=== PATIENT | female | born 1970 | race Caucasian/White ===

== ENCOUNTER → 2016-12-14 10:31 | Emergency (ER) | payer SELFPAY ==
[~2016-12-14 10:31] MED LIST: PPD test dose* 5 TU/0.1 ML TEST (*USE PPD ORDER SET*) ONE
== END | disposition home or self-care (01) ==
LOC: UCEAST 10:31 → OHEAST 10:31
DX: Z11.1 Encounter for screening for respiratory tuberculosis (principal)

== ENCOUNTER 2017-03-25 09:31 | Emergency (ER) | payer OTHER ==
--- NOTE | 2017-03-25 11:41 | UC ---
Cecelia Rodriguez Julia, scribed for Ren Meza MD on 03/25/17 at 1112 . FLU HPI - HPI Summary HPI Summary: This patient is a 46 year old F presenting to [facility] accompanied by family with a chief complaint of influenza symptoms since 03/20/17. Patient reports ear pain , intermittent sore throat, sinus congestion, frontal headache, previous body aches, clear nasal discharge, productive cough with yellow sputum, and currently resolved fever. Patient states upper back and shoulder pain after lifting a family member out of bed. The patient rates the pain 9/10 in severity. Patient has multiple influenza contacts at home. - History of Current Complaint Chief Complaint: UCRespiratory Stated Complaint: CONGESTED, NECK PAIN Time Seen by Provider: 03/25/17 10:42 Hx Obtained From: Patient Hx Last Menstrual Period: hysterectomy Onset/Duration: Lasting Days Pain Intensity: 9 Pain Scale Used: 0-10 Numeric Associated Signs & Symptoms: Positive: Fever, Myalgia, Cough, Headache Related Hx: Possible Flu/Infectious Exposure - Allergy/Home Medications Allergies/Adverse Reactions: Allergies Allergy/AdvReac Type Severity Reaction Status Date / Time Latex Allergy HIVES/RASH Verified 03/25/17 09:55 Sulfamethoxazole Allergy Headache Verified 03/25/17 09:55 w/Trimethoprim [From Bactrim] Home Medications: Home Medications Acetaminophen [Tylenol] 500 mg PO Q4HR PRN 03/25/17 [History Confirmed 03/25/17] PMH/Surg Hx/FS Hx/Imm Hx - Surgical History Surgical History: Yes Surgery Procedure, Year, and Place: tubal ligation, HYSTERECTOMY - Family History Known Family History: Positive: Cardiac Disease, Hypertension, Diabetes - Social History Occupation: Employed Full-time Alcohol Use: Occasionally Substance Use Type: None Smoking Status (MU): Light Every Day Tobacco Smoker Type: Cigarettes, eCigarettes Amount Used/How Often: 1/4 ppd Length of Time of Smoking/Using Tobacco: 27 years Have You Smoked in the Last Year: Yes When Did the Patient Quit Smoking/Using Tobacco: JULY 08, 2013 Household Exposure Type: Cigarettes - Immunization History Most Recent Influenza Vaccination: 09/2013 Most Recent Tetanus Shot: 08/2013 Most Recent Pneumonia Vaccination: 09/2013 Review of Systems Constitutional: Fever ENT: Sore Throat, Ear Ache, Nasal Discharge, Sinus Congestion Respiratory: Cough Musculoskeletal: Other: - upper back and shoulder pain Neurological: Headache All Other Systems Reviewed And Are Negative: Yes Physical Exam Triage Information Reviewed: Yes Vital Signs: Initial Vital Signs Temp 98.8 F 03/25/17 09:50 Pulse 77 03/25/17 09:50 Resp 14 03/25/17 09:50 BP 111/76 03/25/17 09:50 Pulse Ox 99 03/25/17 09:50 Vital Signs Reviewed: Yes - Additional Comments General: well-appearing, no pain distress Skin: warm, color reflects adequate perfusion, dry Head: normal Eyes: EOMI, CHRISTIANNE ENT: rhinorrhea, posterior pharynx erythema Neck: supple, tender to posterior neck and back Respiratory: CTA, breath sounds present Cardiovascular: RRR Abdomen: soft, nontender Bowel: present Musculoskeletal: normal, strength/ROM intact Neurological: normal, sensory/motor intact, A&O x3 Psychological: affect/mood appropriate Flu Course/Dx - Differential Dx/Diagnosis Provider Diagnoses: UPPER RESPIRATORY TRACT INFECTION Discharge - Discharge Plan Condition: Stable Disposition: HOME Prescriptions: Amoxicillin/Clavulanate TAB* [Augmentin TAB 875*] 875 mg PO BID #20 tab Patient Education Materials: Upper Respiratory Infection (ED) Forms: *Work Release Referrals: Nicholas Chandler MD [Primary Care Provider] - Additional Instructions: FOLLOW UP WITH YOUR DOCTOR. GET RECHECKED FOR ANY WORSENING OF YOUR CONDITION OR QUESTIONS OR CONCERNS. The documentation as recorded by the Cecelia tolbert Julia accurately reflects the service I personally performed and the decisions made by me, Ren Meza MD.
[2017-03-25 12:25] VITALS: BP 96/70
== END 2017-03-25 11:56 | disposition home or self-care (01) ==
LOC: UCEAST 09:31
DX: J06.9 Acute upper respiratory infection, unspecified (principal); Z88.3 Allergy status to other anti-infective agents; Z91.040 Latex allergy status; Z90.710 Acquired absence of both cervix and uterus; F17.210 Nicotine dependence, cigarettes, uncomplicated
CPT/HCPCS: 99212; G0463

== ENCOUNTER 2017-06-22 08:47 | Emergency (ER) | payer OTHER ==
[2017-06-22 08:54] VITALS: BP 107/71
--- NOTE | 2017-06-22 09:08 | UC ---
Complaint Female HPI - HPI Summary HPI Summary: 46 year old female with vaginal bleeding. has hysterectomy 4 years ago . no fever. started to spot yesterday and spotting bright red blood today. had sex last week with , no new partners. no abdominal pain. no discharge otherwise. no odor. ? concern for STD due to potential infidelity . has history of cervical cancer 4 years ago . per patient had uteruus removed due to fibroids not due to cancer . no fever chills weight loss or obvious UTI Sx but has had some increased frequency and suprapubic discomfort - History Of Current Complaint Chief Complaint: UCGeneralIllness Stated Complaint: VAGINAL BLEEDING Time Seen by Provider: 06/22/17 09:00 Hx Obtained From: Patient Hx Last Menstrual Period: hyster 4 yrs ago ?: No Pain Intensity: 4 Aggravating Factor(s): [place] Alleviating Factor(s): Nothing Associated Signs And Symptoms: Positive: Negative, Vaginal Bleeding/Discharge. Negative: Back Pain, Vaginal Discharge - Risk Factors Ovarian Torsion Risk Factor: Hysterectomy - Allergies/Home Medications Allergies/Adverse Reactions: Allergies Allergy/AdvReac Type Severity Reaction Status Date / Time latex Allergy Hives Verified 06/22/17 08:56 sulfamethoxazole Allergy Hives Verified 06/22/17 08:56 [From Bactrim] trimethoprim [From Bactrim] Allergy Hives Verified 06/22/17 08:56 PMH/Surg Hx/FS Hx/Imm Hx Previously Healthy: Yes Cancer History: Cervical Cancer - Surgical History Surgical History: Yes Surgery Procedure, Year, and Place: tubal ligation, HYSTERECTOMY - Family History Known Family History: Positive: Cardiac Disease, Hypertension, Diabetes - Social History Lives: With Family Alcohol Use: Occasionally Substance Use Type: None Smoking Status (MU): Light Every Day Tobacco Smoker Type: Cigarettes, eCigarettes Amount Used/How Often: 1/4 ppd Length of Time of Smoking/Using Tobacco: 27 years Have You Smoked in the Last Year: Yes When Did the Patient Quit Smoking/Using Tobacco: JULY 08, 2013 Household Exposure Type: Cigarettes - Immunization History Most Recent Influenza Vaccination: 09/2013 Most Recent Tetanus Shot: 08/2013 Most Recent Pneumonia Vaccination: 09/2013 Review of Systems Genitourinary: Abnormal Bleeding Is Patient Immunocompromised?: No All Other Systems Reviewed And Are Negative: Yes Physical Exam Triage Information Reviewed: Yes Appearance: Well-Appearing, No Pain Distress, Well-Nourished Vital Signs: Initial Vital Signs Temp 98.4 F 06/22/17 08:50 Pulse 85 06/22/17 08:50 Resp 16 06/22/17 08:50 BP 107/71 06/22/17 08:50 Pulse Ox 100 06/22/17 08:50 Vital Signs Reviewed: Yes Eye Exam: Normal ENT Exam: Normal Neck: Positive: 1 Respiratory Exam: Normal Cardiovascular Exam: Normal Abdominal Exam: Normal Abdomen Description: Positive: Nontender, Soft, Other: - mild suprapubic tenderness but otherwise normal exam. Negative: CVA Tenderness (R), CVA Tenderness (L), Distended, Guarding, McBurney's Point Tenderness, Peritoneal Signs, Pulsatile Mass Musculoskeletal Exam: Normal Neurological Exam: Normal Psychological Exam: Normal Skin Exam: Normal Complaint Female Dx - Course Course Of Treatment: we do not have sono here. she is aware of that. advise ED for further eval but she declined and wants to wait to see MANAGER UNIT in 2 days for further eval for pelvic and sono. she desires to only have her MANAGER UNIT do a pelvic examination. she is on waiting list for appt with MANAGER UNIT and waiting for cancellation but I advised to call and let them know of vaginal bleeding complaint/ spotting and needs further eval. she was told break through bleeding based on her risks with cancer she may have cancer and needs to see MANAGER UNIT HARVINDER and will call to see them Saturday. She is asking for STD work up as there is concern about her with infidelity. She denies vaginal discharge or infectious symptoms. Only BRB / spotting present. (+) U/A for UTI -- treat at this time and she will definietely still f/u with MANAGER UNIT harvinder - Differential Dx/Diagnosis Differential Diagnosis/HQI/PQRI: Ovarian Cyst, Pelvic Inflammatory Disease, Sexually Transmitted Disease, Urinary Tract Infection Provider Diagnoses: vaginal bleeding. uti. history of cervical cancer Discharge - Sign-Out/Discharge Documenting (check all that apply): Discharge/Admit/Transfer - Discharge Plan Condition: Good Disposition: HOME Prescriptions: Ciprofloxacin TAB* [Cipro 250 MG Tab*] 250 mg PO BID #6 tab Patient Education Materials: Urinary Tract Infection in Women (DC), Cervical Cancer (DC) Referrals: Stevanovic,Radomir D, MD [Primary Care Provider] - (PLEASE CALL YOUR MANAGER UNIT FOR FOLLOW UP FOR YOUR VAGINAL BLEEDING SOON POSSIBLE ) - Billing Disposition and Condition Condition: GOOD Disposition: HOME
== END 2017-06-22 10:00 | disposition home or self-care (01) ==
LOC: UCEAST 08:47
DX: N93.9 Abnormal uterine and vaginal bleeding, unspecified (principal); N39.0 Urinary tract infection, site not specified; B96.20 Unspecified Escherichia coli [E. coli] as the cause of diseases classified elsewhere; Z85.41 Personal history of malignant neoplasm of cervix uteri; Z11.4 Encounter for screening for human immunodeficiency virus [HIV]; Z88.2 Allergy status to sulfonamides; Z91.040 Latex allergy status; F17.210 Nicotine dependence, cigarettes, uncomplicated
CPT/HCPCS: 36415; 80074; 81003; 86592; 86694; 86695; 86696; 86703; 87077; 87086; 87186; 87491; 87591; 99212; G0463

== ENCOUNTER 2018-01-22 16:32 | Emergency (ER) | payer SELFPAY ==
[2018-01-22 16:55] VITALS: BP 115/73
--- NOTE | 2018-01-22 17:53 | UC ---
Throat Pain/Nasal Alfie HPI - HPI Summary HPI Summary: 47-year-old woman here with a chief complaint of sinus congestion and runny nose left ear pain. He also has some nausea she believes secondary to the rhinorrhea. No abdominal pain no fevers. This been going about 10 days. - History of Current Complaint Chief Complaint: UCEar Stated Complaint: EAR ACHE, HEADACHE, AND DIARRHEA Time Seen by Provider: 01/22/18 16:46 Hx Last Menstrual Period: post Pain Intensity: 6 - Allergies/Home Medications Allergies/Adverse Reactions: Allergies Allergy/AdvReac Type Severity Reaction Status Date / Time latex Allergy Hives Verified 01/22/18 17:03 sulfamethoxazole Allergy Hives Verified 01/22/18 17:03 [From Bactrim] trimethoprim [From Bactrim] Allergy Hives Verified 01/22/18 17:03 PMH/Surg Hx/FS Hx/Imm Hx Previously Healthy: Yes - Surgical History Surgical History: Yes Surgery Procedure, Year, and Place: tubal ligation, HYSTERECTOMY - Family History Known Family History: Positive: Cardiac Disease, Hypertension, Diabetes - Social History Alcohol Use: Occasionally Substance Use Type: None Smoking Status (MU): Light Every Day Tobacco Smoker Type: Cigarettes, eCigarettes Amount Used/How Often: 1/4 ppd Length of Time of Smoking/Using Tobacco: 27 years Have You Smoked in the Last Year: Yes When Did the Patient Quit Smoking/Using Tobacco: JULY 08, 2013 Household Exposure Type: Cigarettes - Immunization History Most Recent Influenza Vaccination: 09/2013 Most Recent Tetanus Shot: 08/2013 Most Recent Pneumonia Vaccination: 09/2013 Review of Systems All Other Systems Reviewed And Are Negative: Yes Constitutional: Positive: Negative Skin: Positive: Negative Eyes: Positive: Negative ENT: Positive: Sore Throat, Ear Ache, Nasal Discharge, Sinus Congestion, Sinus Pain/Tenderness Respiratory: Positive: Negative Cardiovascular: Positive: Negative Gastrointestinal: Positive: Vomiting Motor: Positive: Negative Neurovascular: Positive: Negative Musculoskeletal: Positive: Negative Neurological: Positive: Negative Psychological: Positive: Negative Is Patient Immunocompromised?: No Physical Exam Triage Information Reviewed: Yes Appearance: Well-Appearing, No Pain Distress, Well-Nourished Vital Signs: Initial Vital Signs Temp 98 F 01/22/18 16:51 Pulse 74 01/22/18 16:51 Resp 15 01/22/18 16:51 BP 115/73 01/22/18 16:51 Pulse Ox 99 01/22/18 16:51 Vital Signs Reviewed: Yes Eye Exam: Normal Eyes: Positive: Conjunctiva Clear ENT: Positive: Pharyngeal erythema, Nasal congestion, Nasal drainage, TMs normal Neck exam: Normal Neck: Positive: Supple Respiratory: Positive: Lungs clear, Normal breath sounds, No respiratory distress Cardiovascular: Positive: RRR Musculoskeletal Exam: Normal Musculoskeletal: Positive: Strength Intact, ROM Intact Neurological Exam: Normal Neurological: Positive: Alert, Muscle Tone Normal Psychological Exam: Normal Psychological: Positive: Normal Response To Family, Age Appropriate Behavior Skin Exam: Normal Throat Pain/Nasal Course/Dx - Differential Dx/Diagnosis Provider Diagnosis: Sinusitis Discharge - Sign-Out/Discharge Documenting (check all that apply): Patient Departure All imaging exams completed and their final reports reviewed: No Studies - Discharge Plan Condition: Stable Disposition: HOME Prescriptions: Amoxicillin/Clavulanate TAB* [Augmentin TAB 875*] 875 mg PO BID #20 tab Ondansetron ODT TAB* [Zofran 4 MG Odt TAB*] 4 mg PO Q6H PRN #10 tab.odt PRN Reason: Nausea Patient Education Materials: Sinusitis (ED) Referrals: Nicholas Chandler MD [Primary Care Provider] - Additional Instructions: FOLLOW UP WITH YOUR DOCTOR IF NOT COMPLETELY IMPROVED. GET RECHECKED FOR ANY WORSENING OF YOUR CONDITION OR QUESTIONS OR CONCERNS. - Billing Disposition and Condition Condition: STABLE Disposition: Home
== END 2018-01-22 18:10 | disposition home or self-care (01) ==
LOC: UCEAST 16:32
DX: J32.9 Chronic sinusitis, unspecified (principal); Z88.2 Allergy status to sulfonamides; Z91.040 Latex allergy status; F17.210 Nicotine dependence, cigarettes, uncomplicated
CPT/HCPCS: 99212; G0463

== ENCOUNTER 2018-01-22 16:36 | Emergency (ER) | payer OTHER ==
[2018-01-22 17:00] VITALS: BP 115/73
--- NOTE | 2018-01-22 18:00 | UC ---
Head Injury HPI - HPI Summary HPI Summary: 47-year-old woman coming in to clinic today with a chief complaint of head and neck pain after a fall yesterday work. She tripped and fell she also hit her left knee left elbow and right wrist. She's got minimal tenderness in the anterior aspect of the left knee which is walking on it is not worried about anything being broken. Also some pain in the left trapezius area she is also not worried about any fractures. Right wrist pain after the fall with full range of motion she's not worried about any fracture on the right wrist. She also struck the top of her head and has some pain in the top of her head and she feels like she compressed her neck and she has some pain in her upper neck. No weakness or numbness. No vision change or difficulty with speech. She felt dazed after the injury. Feels well now. - History Of Current Complaint Chief Complaint: UCHeadInjury Stated Complaint: HEAD AND KNEE INJURY Time Seen by Provider: 01/22/18 16:46 Hx Last Menstrual Period: post Pain Intensity: 6 - Allergies/Home Medications Allergies/Adverse Reactions: Allergies Allergy/AdvReac Type Severity Reaction Status Date / Time latex Allergy Hives Verified 01/22/18 17:03 sulfamethoxazole Allergy Hives Verified 01/22/18 17:03 [From Bactrim] trimethoprim [From Bactrim] Allergy Hives Verified 01/22/18 17:03 PMH/Surg Hx/FS Hx/Imm Hx Previously Healthy: Yes - Surgical History Surgical History: Yes Surgery Procedure, Year, and Place: tubal ligation, HYSTERECTOMY - Family History Known Family History: Positive: Cardiac Disease, Hypertension, Diabetes - Social History Alcohol Use: Occasionally Substance Use Type: None Smoking Status (MU): Light Every Day Tobacco Smoker Type: Cigarettes, eCigarettes Amount Used/How Often: 1/4 ppd Length of Time of Smoking/Using Tobacco: 27 years Have You Smoked in the Last Year: Yes When Did the Patient Quit Smoking/Using Tobacco: JULY 08, 2013 Household Exposure Type: Cigarettes - Immunization History Most Recent Influenza Vaccination: 09/2013 Most Recent Tetanus Shot: 08/2013 Most Recent Pneumonia Vaccination: 09/2013 Review of Systems All Other Systems Reviewed And Are Negative: Yes Constitutional: Positive: Negative Skin: Positive: Negative Eyes: Positive: Negative ENT: Positive: Negative Respiratory: Positive: Negative Cardiovascular: Positive: Negative Gastrointestinal: Positive: Negative Motor: Positive: Negative Neurovascular: Positive: Negative Musculoskeletal: Positive: Other: - Head is normocephalic/atraumatic eardrums are normal. The neck is mildly tender bilaterally laterally but not midline of the upper part. Left triceps is mildly tender has full range of motion there is no obvious deformity there is no ecchymosis. Right wrist is mildly tender is full range of motion no ecchymosis or deformity. Is full range of motion stable to exam there is mild tenderness to palpation of the patella normal exam otherwise no effusion. Neurological: Positive: Negative Psychological: Positive: Negative Is Patient Immunocompromised?: No Physical Exam Triage Information Reviewed: Yes Appearance: Well-Appearing, No Pain Distress, Well-Nourished Vital Signs: Initial Vital Signs Temp 98 F 01/22/18 16:56 Pulse 74 01/22/18 16:56 Resp 15 01/22/18 16:56 BP 115/73 01/22/18 16:56 Pulse Ox 99 01/22/18 16:56 Vital Signs Reviewed: Yes Eye Exam: Normal Eyes: Positive: Conjunctiva Clear ENT: Positive: TMs normal Neck: Positive: Supple, Other: Respiratory Exam: Normal Respiratory: Positive: Chest non-tender, Lungs clear, Normal breath sounds, No respiratory distress Cardiovascular: Positive: RRR Abdomen Description: Negative: CVA Tenderness (R), CVA Tenderness (L) Musculoskeletal: Positive: Other: - Head is normocephalic/atraumatic eardrums are normal. The neck is mildly tender bilaterally laterally but not midline of the upper part. Left triceps is mildly tender has full range of motion there is no obvious deformity there is no ecchymosis. Right wrist is mildly tender is full range of motion no ecchymosis or deformity. Is full range of motion stable to exam there is mild tenderness to palpation of the patella normal exam otherwise no effusion. Neurological Exam: Normal Neurological: Positive: Alert, Muscle Tone Normal Psychological Exam: Normal Psychological: Positive: Normal Response To Family, Age Appropriate Behavior Skin Exam: Normal Head Injury Course/Dx - Course Course Of Treatment: CT Cervical Spine Without Intravenous Contrast. EXAM DATE/ TIME: 01/22/2018 6:02 PM. CLINICAL HISTORY: 47 years old, female; Pain and injury or trauma; Fall; Work related; Initial. encounter; Concussion /head injury; Cervicalgia and neck pain; Injury date: 01/21/18; Additional info: Pain S/P fall 01/21/18. TECHNIQUE: Axial computed tomography images of the cervical spine without intravenous. contrast. All CT scans at this facility use at least one of these dose optimization. techniques: automated exposure control; mA and/or kV adjustment per patient. size (includes targeted exams where dose is matched to clinical indication); or. iterative reconstruction. Sagittal reformatted images were created and reviewed. COMPARISON: OT CSP PART SP CERVICAL 2-3 VWS 04/12/2013 11:41 AM. FINDINGS: Vertebrae: Vertebral body heights are maintained. No locked or perched. facets. Mild multilevel facet arthropathy. No acute fracture. The dens is. intact. Atlanto-axial intervals are normal. Discs/Spinal canal/Neural foramina: Multilevel mild degenerative disc height. loss. Mild osseous canal narrowing from C5-C7 secondary to partial ossification. of the posterior longitudinal ligament. Soft tissues: Unremarkable. Lungs: Mild centrilobular emphysematous changes of the lung apices. IMPRESSION: 1. No acute cervical spine fracture. 2. 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 To contact [place] with a general question: Operations Center - [phone]. For direct physician to physician contact: Physician Hotline - [phone]. [facility] ([facility] Facility ID #[id number]). End of Report Content =========. . Attending Doctor: Ren Meza ([id number]). Bone Process Operator: Bonifacio Harrison ([id number]). Tire Technician: Anna POWER ([id number]). Report Date: 01/22/2018 17:39:00. Report Status: Final. Begin of Report Content . Patient Name: JOEL MYERS Medical Record#: [id number]. Ordering Physician: Ren Meza MD Acct. #: [id number]. : 1970 Age: 47 Sex: F Location: [facility]. Exam Date: 01/22/181738 ADM Status: REG ER. Order Information: CT SPINE CERVICAL W/O. Accession Number: [id number]. CPT: 40714. EXAM: CT Cervical Spine Without Intravenous Contrast. EXAM DATE/TIME: 01/22/2018 6:02 PM. CLINICAL HISTORY: 47 years old, female; Pain and injury or trauma; Fall; Work related; Initial. encounter; Concussion /head injury; Cervicalgia and neck pain; Injury date: 01/21/18; Additional info: Pain S/P fall 01/21/18. TECHNIQUE: Axial computed tomography images of the cervical spine without intravenous. contrast. All CT scans at this facility use at least one of these dose optimization. techniques: automated exposure control; mA and/or kV adjustment per patient. size (includes targeted exams where dose is matched to clinical indication); or. iterative reconstruction. Sagittal reformatted images were created and reviewed. COMPARISON: OT CSP PART SP CERVICAL 2-3 VWS 04/12/2013 11:41 AM. FINDINGS: Vertebrae: Vertebral body heights are maintained. No locked or perched. facets. Mild multilevel facet arthropathy. No acute fracture. The dens is. intact. Atlanto-axial intervals are normal. Discs/Spinal canal/Neural foramina: Multilevel mild degenerative disc height. loss. Mild osseous canal narrowing from C5-C7 secondary to partial ossification. of the posterior longitudinal ligament. Soft tissues: Unremarkable. Lungs: Mild centrilobular emphysematous changes of the lung apices. IMPRESSION: 1. No acute cervical spine fracture. 2. 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 To contact [facility] with a general question: Operations Center - [phone]. For direct physician to physician contact: Physician Hotline - [phone]. [facility] ([facility] Facility ID #[id number]) . . < Electronically signed by Bonifacio Harrison MD in OV> 01/22/18 1837. Order Information: CT BRAIN WO. Accession Number: [id number]. CPT: 34279. EXAM: CT Head Without Intravenous Contrast. EXAM DATE/TIME: 01/22/2018 6:00 PM. CLINICAL HISTORY: 47 years old, female; Injury or trauma; Fall; Work related; Initial encounter;. Blunt trauma (contusions or hematomas); Without loss of consciousness; Injury. date: 01/21/18; Additional info: PT hit top of her head yesterday, pain on top. of head. TECHNIQUE: Axial computed tomography images of the head/brain without intravenous. contrast. All CT scans at this facility use at least one of these dose optimization. techniques: automated exposure control; mA and/or kV adjustment per patient. size (includes targeted exams where dose is matched to clinical indication); or. iterative reconstruction. COMPARISON: No relevant prior studies available. FINDINGS: Brain: No acute intracranial hemorrhage or extra-axial fluid collection. No. evidence of mass effect or midline shift. Randolph-white matter differentiation is. intact. Ventricles: No ventriculomegaly. Bones/joints: No acute osseus lesion or fracture. Sinuses: Unremarkable as visualized. Mastoid air cells: Unremarkable. Soft tissues: Anterior most portion of the scalp not included within the. [id number] the examination. Scalp soft tissues are otherwise unremarkable. IMPRESSION: No acute intracranial pathology. To contact [facility] with a general question: Operations Center - [phone]. For direct physician to physician contact: Physician Hotline - [phone]. [facility] ([facility] Facility ID #[id number]). . <Electronically signed by Bonifacio Harrison MD in OV> 01/22/18 183. I discussed the results of the CTs with the patient. The plan is ibuprofen as needed and follow-up with occupational medicine or her primary care doctor if not completely improved. Emergency department if anything gets worse. - Differential Dx/Diagnosis Provider Diagnosis: Head injury, Cervical strain, Contusion of left knee, Left elbow contusion, Right wrist sprain Discharge - Sign-Out/Discharge Documenting (check all that apply): Patient Departure All imaging exams completed and their final reports reviewed: Yes - Discharge Plan Condition: Stable Disposition: HOME Patient Education Materials: Cervical Strain (ED), Head Injury (ED), Contusion in Adults (ED), Knee Pain (ED), Wrist Sprain (ED) Referrals: Nicholas Chandler MD [Primary Care Provider] - Phill Granger MD [Medical Doctor] - Additional Instructions: FOLLOW UP WITH OCCUPATIONAL MEDICINE OR YOUR DOCTOR IF NOT COMPLETELY IMPROVED. GET RECHECKED FOR ANY WORSENING OF YOUR CONDITION OR QUESTIONS OR CONCERNS. - Billing Disposition and Condition Condition: STABLE Disposition: Home
== END 2018-01-22 18:10 | disposition home or self-care (01) ==
LOC: UCEAST 16:36
DX: S09.90XA Unspecified injury of head, initial encounter (principal); S16.1XXA Strain of muscle, fascia and tendon at neck level, initial encounter; S80.02XA Contusion of left knee, initial encounter; S50.02XA Contusion of left elbow, initial encounter; S63.501A Unspecified sprain of right wrist, initial encounter; W01.0XXA Fall on same level from slipping, tripping and stumbling without subsequent striking against object, initial encounter; Y92.9 Unspecified place or not applicable; Z88.2 Allergy status to sulfonamides; Z91.040 Latex allergy status; F17.210 Nicotine dependence, cigarettes, uncomplicated
CPT/HCPCS: 70450; 72125; 99211; G0463

== ENCOUNTER 2018-03-18 08:43 | Emergency (ER) | payer SELFPAY ==
[2018-03-18 08:55] VITALS: BP 116/74
--- NOTE | 2018-03-18 09:30 | UC ---
FLU HPI - HPI Summary HPI Summary: Patient presents to urgent care stating since Saturday night has developed fevers with a MAXIMUM TEMPERATURE of 105, cough and wheeze without sputum production, head congestion, sore throat. Patient states starting yesterday all of her joints and muscles started to hurt. Patient has been taking Tylenol and cough medication was moderate improvement. Last Tylenol was at 7 AM today. Patient with decreased appetite but continues with by mouth. No vaginal discharge, itching, odor. Patient states she flew to and from [place] and so sure if she had sick contacts. Patient did not get a flu vaccine this year. Patient does smoke cigarettes. Patient's medications reviewed this visit. - History of Current Complaint Chief Complaint: UCRespiratory Stated Complaint: RESP ISSUE Time Seen by Provider: 03/18/18 09:12 Hx Obtained From: Patient Hx Last Menstrual Period: post ?: No Onset/Duration: Gradual Onset, Lasting Days Severity Currently: Moderate Severity Initially: Moderate Pain Intensity: 8 Pain Scale Used: 0-10 Numeric Associated Signs & Symptoms: Positive: Fever, T Max - 105, Myalgia, Cough, Sore Throat, Nasal Congestion, Headache Related Hx: Possible Flu/Infectious Exposure - Allergy/Home Medications Allergies/Adverse Reactions: Allergies Allergy/AdvReac Type Severity Reaction Status Date / Time latex Allergy Hives Verified 03/18/18 08:55 sulfamethoxazole Allergy Hives Verified 03/18/18 08:55 [From Bactrim] trimethoprim [From Bactrim] Allergy Hives Verified 03/18/18 08:55 Home Medications: Home Medications Acetaminophen TAB* [Tylenol TAB*] 975 mg PO Q6H PRN 03/18/18 [History Confirmed 03/18/18] PMH/Surg Hx/FS Hx/Imm Hx Previously Healthy: Yes Cancer History: Cervical Cancer - Surgical History Surgical History: Yes Surgery Procedure, Year, and Place: tubal ligation, HYSTERECTOMY - Family History Known Family History: Positive: Cardiac Disease, Hypertension, Diabetes - Social History Occupation: Employed Full-time Lives: Alone Alcohol Use: Occasionally Substance Use Type: None Smoking Status (MU): Light Every Day Tobacco Smoker Type: Cigarettes, eCigarettes Amount Used/How Often: 1 pk every 3-4 days Length of Time of Smoking/Using Tobacco: 27 years Have You Smoked in the Last Year: Yes When Did the Patient Quit Smoking/Using Tobacco: JULY 08, 2013 Household Exposure Type: Cigarettes - Immunization History Most Recent Influenza Vaccination: 09/2013 Most Recent Tetanus Shot: 08/2013 Most Recent Pneumonia Vaccination: 09/2013 Review of Systems All Other Systems Reviewed And Are Negative: Yes Constitutional: Positive: Fever Skin: Positive: Negative Eyes: Positive: Negative ENT: Positive: Sore Throat, Ear Ache, Nasal Discharge, Sinus Congestion, Sinus Pain/Tenderness Respiratory: Positive: Cough Cardiovascular: Positive: Negative Gastrointestinal: Positive: Negative Physical Exam - Summary Physical Exam Summary: Vital Signs Reviewed: Yes A+Ox3, no distress Eyes: Conjunctiva Clear, CHRISTIANNE. EOM intact and full ENT: Hearing grossly normal scant fluid right TM, turbinates inflammed and boggy, + PND thick discharge, mmoist, uvula midline, no exudate, no erythema Neck: Positive: Supple, Respiratory: Positive: + coarse cough, end exp wheeze, no rhonci Cardiovascular: RRR nl s1, s2 no m/r CBT <2 sec abd soft + BS nt/nd no guarding, no distension Musculoskeletal Exam: IYER x 4 without difficulty Strength Intact, ROM Intact Neurological: Positive: Alert, + sensation throughout Psychological: Positive: Normal Response To Family Skin: Positive: no rash, no ecchymosis Triage Information Reviewed: Yes Vital Signs: Initial Vital Signs Temp 99.2 F 03/18/18 08:49 Pulse 92 03/18/18 08:49 Resp 16 03/18/18 08:49 BP 116/74 03/18/18 08:49 Pulse Ox 95 03/18/18 08:49 Re-Evaluation - Re-Evaluation First Eval Change: Improved - Pt improved after neb coughing less, wheeze resolved Will Rx Tamiflu decrease cigarette smoke hydrate secretion precautioin albuterol work note Flu Course/Dx - Course Course Of Treatment: Pt presents with progressive fevers, cough, mylagia since Sat. + cough. + tobacco use, no flu vaccine. On exam, VSS. Pt with coarse cough, exp wheeze. Will check influenza, neb. re assess - Differential Dx/Diagnosis Provider Diagnosis: Influenza A Discharge - Sign-Out/Discharge Documenting (check all that apply): Patient Departure All imaging exams completed and their final reports reviewed: No Studies - Discharge Plan Condition: Stable Disposition: HOME Prescriptions: Albuterol HFA INHALER* [Ventolin HFA Inhaler*] 2 puff INH Q4H PRN #1 mdi PRN Reason: wheeze Inhaler, Assist Devices [Aerochamber Mv] 1 each PO Q4HR #1 spacer Oseltamivir CAP* [Tamiflu CAP*] 75 mg PO BID #10 cap Patient Education Materials: Influenza (ED) Forms: *Gen. Provider Communication, *Work Release Referrals: Nicholas Chandler MD [Primary Care Provider] - Additional Instructions: - Stay well hydrated. Drink plenty of non-alcoholic, non-caffinated beverages. - Alternate ibuprofen (Advil, Motrin) 600mg and Tylenol every 3 hours for pain or fever. Take with food. Do NOT take for more than 4-5 days. - These infections are spread by secretions - do NOT share eating or drinking utensils - clean items you share with other people such as cell phones, computer mouse, TV remote, computer tablets,etc. Once you start to feel better, change your toothbrush and your pillowcase. - get plenty of restful sleep - humidify the air in the room where you sleep - boil water, run a hot steam shower, vaporizer, cups of water by heat register - okay to take over the counter decongestant and cough medication -Take tamiflu as prescribed - Use inhaler - 2 puffs every 4 hours today and tomorrow, then every 4 hours as needed - contact your doctor or return with questions or concerns - Billing Disposition and Condition Condition: STABLE Disposition: Home
[2018-03-18] MEDS ORDERED: Albuterol/Ipratropium NEB.SOL* Albuterol 2.5 MG/Ipratropium 0.5 MG 3 ML INH ONE (09:36)
== END 2018-03-18 10:45 | disposition home or self-care (01) ==
LOC: UCEAST 08:43
DX: J10.1 Influenza due to other identified influenza virus with other respiratory manifestations (principal); Z88.2 Allergy status to sulfonamides; Z91.040 Latex allergy status; F17.200 Nicotine dependence, unspecified, uncomplicated
CPT/HCPCS: 99212; A9270-GY; G0463

== ENCOUNTER 2024-01-15 13:09 | Observation (INO) ==
[2024-01-15 13:38] LABS: ABS Eosinophils 0.1 10^3/uL (0.0-0.5); ABS Monocytes 0.6 10^3/uL (0.0-0.9); ABS Neutrophils 6.4 10^3/uL (1.5-7.6); ABS Nucleated RBC 0.02 10^3/ul; Eosinophil % 1.3 %; Hematocrit 40.1 % (35-45); Hemoglobin 13.3 g/dL (11.5-14.3); Lymphocyte % 29.5 %; Mean Corpuscular Hemoglobin 28.8 pg (27-33); Mean Corpuscular Volume 87.3 fL (80-97); Mean Platelet Volume 8.3 fL (7.5-11.2); Nucleated Red Blood Cells % 0.2 %/100WBC (0.0-0.8); Platelet Count 262 10^3/uL (150-450); Red Cell Distribution Width 14.1 % (12-17); White Blood Count 10.3 10^3/uL (3.8-11.8)
[2024-01-15 13:44] LABS: INR 1.14 (0.85-1.14)
[2024-01-15 14:02] LABS: High Sens Troponin Baseline < 3 pg/mL (<15)
[2024-01-15] MEDS: Lactated Ringers 1000 ml BAG 1,000 ML IV SCH ×2 (14:49→19:59)
[2024-01-15 15:07] LABS: ALT 18 U/L (7-52); AST 20 U/L (13-39); Albumin 4.2 g/dL (3.2-5.2); Albumin/Globulin Ratio 2.1 (1-3); Alkaline Phosphatase 71 U/L (35-149); Anion Gap 8 mmol/L (2-16); Blood Urea Nitrogen 26 mg/dL (6-24); CO2 Carbon Dioxide 26 mmol/L (22-32); Chloride 104 mmol/L (101-111); Creatinine, Serum 0.75 mg/dL (0.51-0.95); Glucose 101 mg/dL (70-100); Potassium 3.7 mmol/L (3.5-5.0); Sodium 138 mmol/L (135-145); Total Bilirubin 0.4 mg/dL (0.2-1.0); Total Protein 6.2 g/dL (6.4-8.9)
[2024-01-15 15:07] LABS: High Sensitivity Troponin 1 Hr 7 pg/mL (<15)
[2024-01-15] MEDS ORDERED: Sulfur Hexaflouride MICROSPHR 25 MG VIAL IV PRN (16:58)
[2024-01-15] MEDS: Mometasone/Formoter 200/5 MDI INH SCH (19:55)
[2024-01-16] MEDS: Nicotine PATCH 21 MG/24 HR PATCH TRANSDERM SCH (03:22)
[2024-01-16 06:50] LABS: ABS Eosinophils 0.2 10^3/uL (0.0-0.5); ABS Lymphocytes 2.8 10^3/uL (1.0-4.8); ABS Monocytes 0.7 10^3/uL (0.0-0.9); Hematocrit 39.4 % (35-45); Lymphocyte % 36.1 %; Mean Corpuscular Hgb Conc 32.9 g/dL (31-36); Mean Corpuscular Volume 88.1 fL (80-97); Mean Platelet Volume 8.3 fL (7.5-11.2); Platelet Count 240 10^3/uL (150-450); Red Blood Count 4.47 10^6/uL (3.63-4.92); Red Cell Distribution Width 14.4 % (12-17); White Blood Count 7.7 10^3/uL (3.8-11.8)
[2024-01-16 07:22] LABS: Calcium 8.8 mg/dL (8.6-10.3); Creatinine, Serum 0.71 mg/dL (0.51-0.95); Magnesium 1.7 mg/dL (1.9-2.7); Potassium 3.6 mmol/L (3.5-5.0); eGFR CKD-EPI 100.3 (>60)
[2024-01-16 11:32] VITALS: BP 120/80
== END 2024-01-16 14:50 | disposition home or self-care (01) ==
LOC: ED 13:09 → EDHOLD 13:09 → SUATTDRO 16:55 → MEDTELE 01-16 01:16
PROVIDERS: ADMIT Student in an Organized Health Care Education/Training Program; ATTEND Hospitalist